=== PATIENT | male | born 1975 | race Hispanic/Latino ===

== ENCOUNTER 2018-10-16 19:56 | Inpatient (IN) | payer BC ==
[~2018-10-16] VITALS: Ht 177.8 cm; Wt 92.2 kg
[2018-10-16] MEDS ORDERED: KETOROLAC TROMETHAMINE 15MG/ML ONE (20:23)
[2018-10-16 20:27] LABS: BASOPHILS % (AUTO) 0.7 % (0.0-5.0); EOSINOPHILS % (AUTO) 0.3 % (0.0-8.0); HEMATOCRIT 42.6 % (42-54); LYMPHOCYTES % (AUTO) 8.4 % (21.0-51.0); MEAN CORPUSCULAR HEMOGLOBIN 30.1 pg (27.0-33.0); MEAN CORPUSCULAR HGB CONC 33.3 g/dL (32.0-36.0); MEAN CORPUSCULAR VOLUME 90.2 fL (79-99); MONOCYTES % (AUTO) 9.3 % (3.0-13.0); NEUTROPHILS % (AUTO) 81.3 % (40.0-77.0); PLATELET COUNT (AUTO) 45 K/uL (130-400); RED BLOOD CELL COUNT(AUTO) 4.72 MIL/uL (4.50-6.20); RED CELL DISTRIBUTION WIDTH 14.2 % (11.0-15.5); WHITE BLOOD COUNT (AUTO) 8.5 K/uL (4.8-10.8)
[2018-10-16 20:34] LABS: APPEARANCE,URINE Cloudy (CLEAR); BILIRUBIN,URINE Small (NEGATIVE); COLOR,URINE Orange (YELLOW); GLUCOSE, URINE (UA) Negative (NEGATIVE); KETONES,URINE 15 mg/dL (NEGATIVE); LEUKOCYTE ESTERASE ,URINE Trace (NEGATIVE); NITRATE,URINE Positive (NEGATIVE); OCCULT BLOOD,URINE Small (NEGATIVE); PROTEIN,URINE Trace mg/dL (NEGATIVE)
[2018-10-16 20:40] LABS: CREATININE 1.1 mg/dL (0.5-1.5); POTASSIUM 4.3 mmol/L (3.5-5.1)
[2018-10-16 20:44] LABS: BILIRUBIN,TOTAL 1.6 mg/dL (0.2-1.0); TOTAL PROTEIN, SERUM 7.2 g/dL (6.0-8.3)
[2018-10-16 20:45] LABS: BACTERIA,URINE Few /HPF (None Seen); CALCIUM OXALATE CRYSTALS,UR Few /LPF (None Seen); MUCUS,URINE Few LPF (None Seen); RBC,URINE 0-1 /HPF (0-1); SQUAMOUS EPITHELIAL CELL,UR Few /HPF (0-2)
[2018-10-16 20:47] LABS: PLATELET MORPHOLOGY COMMENT MARKED DECREASE
[2018-10-16] MEDS ORDERED: SODIUM CHLORIDE 0.9% 1000ML 1,000 ML IV SCH (22:59)
[2018-10-16] MEDS ORDERED: LACTULOSE 20 GM/30 ML UDCUP PO PRN (23:00)
[2018-10-16] MEDS ORDERED: ONDANSETRON HCL 4 MG/2 ML VIAL IV PRN (23:00)
[2018-10-16] MEDS ORDERED: MORPHINE SULFATE 4 MG/1ML SYG IV PRN (23:00)
[2018-10-16 23:04] VITALS: BP 111/79
[2018-10-16] MEDS ORDERED: FURO40TA5 PO (23:20)
[2018-10-16] MEDS ORDERED: LACT10SO8 PO (23:20)
[2018-10-16] MEDS ORDERED: SPIR100T5 PO (23:20)
[2018-10-16] MEDS: CEFTRIAXONE SODIUM 1 GM IV SCH (23:54)
[2018-10-17 03:15] VITALS: BP 118/81
[2018-10-17] MEDS ORDERED: NON-FORMULARY MEDICATION 1 EACH (Lactulose 10 GM) PO SCH (07:00)
[2018-10-17] MEDS: MORPHINE SULFATE 2 MG/ML 1ML SYG IV PRN ×2 (07:56→09:05)
[2018-10-17] MEDS: FAMOTIDINE/PF 20 MG/2 ML VIAL IV SCH ×2 (07:57→20:07)
[2018-10-17 08:00] VITALS: BP 108/72
[2018-10-17] MEDS: FUROSEMIDE 40 MG TABLET PO SCH (08:01)
[2018-10-17] MEDS: SPIRONOLACTONE 25 MG TAB PO SCH (08:01)
[2018-10-17] MEDS ORDERED: FUROSEMIDE 10 MG/ML 2ML VIAL IV SCH (09:00)
[2018-10-17] MEDS ORDERED: ENOXAPARIN SODIUM 30 MG/0.3 ML SQ SCH (09:00)
[2018-10-17] MEDS ORDERED: KETOROLAC TROMETHAMINE 15MG/ML IV PRN (09:15)
[2018-10-17] MEDS ORDERED: MORPHINE SULFATE 2 MG/ML 1ML SYG IVP SCH (09:15)
[2018-10-17 11:00] VITALS: BP 111/71
--- NOTE | 2018-10-17 11:00 | NUR ---
DR. TUNG GOLDEN MD PAGED, PENDING CONSULT FOR RIGHT KIDNEY HYDRONEPHROSIS RESULTS. PER ER, MD MADE AWARE OF CONSULT LAST NIGHT. PENDING MD TO RETURN CALL IN REGARDS TO PLAN OF CARE. WILL MONITOR PT CLOSELY.
--- NOTE | 2018-10-17 12:29 | NUR ---
DCP CM met with pt discussed dc plans. Pt is independent prior to admission, lives at home alone, mother lives close by. Denies any equipments/services. Pt feels safe to go back home, still drives and works, pt arranges own needs. DC plan to home once stable. CM to cont to follow up. Addendum: 10/17/18 at 1230 by LOKESH RASCON LVN CM Amended: Links added.
--- NOTE | 2018-10-17 13:14 | NUR ---
RD Notification Patient initially with refusal to eat in case of procedure. RD with suggestion of Ensure Clear at meals, Patient agreed. Patient with no report of GI distress. RD discussed cholelithiasis diet education with patient. Patient with good knowledge of cirrhosis diet and preventative measures. Patient monitored labs: BUN 21, Glu 140, T. Bili 1.6, AST 41. RD to continue to monitor. Please notify RD as nutritional concerns arise. Thank you. Addendum: 10/17/18 at [address] RD Amended: Links added.
[2018-10-17 16:00] VITALS: BP 99/58
[2018-10-17 20:00] VITALS: BP 111/75
[2018-10-17] MEDS: CEFTRIAXONE SODIUM 1 GM IV SCH (22:43)
[2018-10-18] VITALS: BP 104/72
[2018-10-18 04:00] VITALS: BP 121/74
[2018-10-18 05:30] LABS: BASOPHILS % (AUTO) 0.3 % (0.0-5.0); EOSINOPHILS % (AUTO) 0.8 % (0.0-8.0); HEMATOCRIT 34.6 % (42-54); LYMPHOCYTES % (AUTO) 10.7 % (21.0-51.0); MEAN CORPUSCULAR HEMOGLOBIN 30.9 pg (27.0-33.0); MEAN CORPUSCULAR VOLUME 90.7 fL (79-99); MONOCYTES % (AUTO) 12.7 % (3.0-13.0); NEUTROPHILS % (AUTO) 75.5 % (40.0-77.0); PLATELET COUNT (AUTO) 36 K/uL (130-400); RED BLOOD CELL COUNT(AUTO) 3.82 MIL/uL (4.50-6.20); RED CELL DISTRIBUTION WIDTH 13.8 % (11.0-15.5); WHITE BLOOD COUNT (AUTO) 6.8 K/uL (4.8-10.8)
[2018-10-18 05:52] LABS: CREATININE 1.3 mg/dL (0.5-1.5); POTASSIUM 4.4 mmol/L (3.5-5.1)
[2018-10-18 08:00] VITALS: BP 113/71
[2018-10-18] MEDS: SPIRONOLACTONE 25 MG TAB PO SCH (09:00)
[2018-10-18] MEDS: FAMOTIDINE/PF 20 MG/2 ML VIAL IV SCH (09:00)
[2018-10-18] MEDS: FUROSEMIDE 40 MG TABLET PO SCH (09:00)
[2018-10-18 12:00] VITALS: BP 108/72
[2018-10-18] MEDS ORDERED: TAMS-1 PO (12:45)
[2018-10-18] MEDS ORDERED: CEFD300C3 PO (13:50)
[2018-10-19] MEDS ORDERED: TAMSULOSIN HCL 0.4 MG CAP.ER.24H PO SCH (13:00)
== END 2018-10-18 15:25 | disposition home or self-care (01) | DRG 690 ==
LOC: EDH 19:56 → EDHIP 21:00 → 4BH 22:15 → 3BH 10-17 19:29
PROVIDERS: ADMIT Internal Medicine; ATTEND Internal Medicine
DX: N13.6 Pyonephrosis (principal); R18.8 Other ascites; D69.6 Thrombocytopenia, unspecified; E66.9 Obesity, unspecified; K74.60 Unspecified cirrhosis of liver; K76.0 Fatty (change of) liver, not elsewhere classified; Z90.49 Acquired absence of other specified parts of digestive tract; Z68.29 Body mass index [BMI] 29.0-29.9, adult
CPT/HCPCS: 36415; 74176; 80048; 80053; 81001; 83690; 85025; 87088; G0378; J0696; J1885; J2405; J3490

== ENCOUNTER → 2018-11-26 | Outpatient (CLI) | payer BC ==
[~2018-11-26] MED LIST: CEFD300C3 PO; FURO20TA4 PO; FURO40TA5 PO; LACT10SO8 PO; LACT10SO9 PO; SPIR100T5 PO; TAMS-1 PO; TRAM50TA4 PO; [UNRECOGNIZED DRUG - OTHER] PO
== END | disposition home or self-care (01) ==
LOC: RAH 07:38
PROVIDERS: ATTEND Internal Medicine Gastroenterology
DX: K80.20 Calculus of gallbladder without cholecystitis without obstruction (principal); R18.8 Other ascites; R16.1 Splenomegaly, not elsewhere classified
CPT/HCPCS: 76700; 93975

== ENCOUNTER → 2018-12-01 | Outpatient (CLI) | payer BC ==
[~2018-12-01] MED LIST changes: +ALBUMIN (HUMAN) 25% 200 ML IV SCH
[2018-12-01 08:36] LABS: BASOPHILS % (AUTO) 0.7 % (0.0-5.0); EOSINOPHILS % (AUTO) 1.5 % (0.0-8.0); HEMATOCRIT 42.1 % (42-54); LYMPHOCYTES % (AUTO) 17.7 % (21.0-51.0); MEAN CORPUSCULAR HEMOGLOBIN 30.1 pg (27.0-33.0); MEAN CORPUSCULAR HGB CONC 33.4 g/dL (32.0-36.0); MEAN CORPUSCULAR VOLUME 90.2 fL (79-99); MONOCYTES % (AUTO) 8.7 % (3.0-13.0); NEUTROPHILS % (AUTO) 71.4 % (40.0-77.0); NUCLEATED RED BLOOD CELLS 0.1 % (0.0-0.19); PLATELET COUNT (AUTO) 61 K/uL (130-400); RED BLOOD CELL COUNT(AUTO) 4.67 MIL/uL (4.50-6.20); RED CELL DISTRIBUTION WIDTH 14.6 % (11.0-15.5); WHITE BLOOD COUNT (AUTO) 4.9 K/uL (4.8-10.8)
[2018-12-01 08:52] LABS: INR 1.25 (0.85-1.15); PROTHROMBIN TIME 13.1 SEC (9.6-11.6)
[2018-12-01 08:53] LABS: ALBUMIN 2.9 g/dL (3.5-5.0); CREATININE 0.8 mg/dL (0.5-1.5); POTASSIUM 4.5 mmol/L (3.5-5.1)
--- NOTE | 2018-12-01 10:45 | NUR ---
U/S GD PARACENTESIS PROCEDURE PERFORMED BY DR Dilma MORGAN. PUNCTURE SITE RLQ AND PATIENT TOLERATED PROCEDURE WELL. TOTAL REMOVED 13 LITERS OF BLOOD TINGED FLUID. SPECIMEN SENT TO LAB. ALBUMIN 25% 50 GRAMS IV GIVEN POST PROCEDURE. END OF PROCEDURE AT 1015. CATHETER REMOVED AND DRESSING APPLIED. DISCHARGE INSTRUCTIONS GIVEN AND VERBALIZED UNDERSTANDING. DISCHARGED VIA AMBULATION AT 1045.
[2018-12-01 12:35] LABS: APPEARANCE BODY FLUID CLOUDY (CLEAR); COLOR,BODY FLUID ORANGE (LT YELLOW); SPECIMENTYPE,BODY FLUID ASCITES; TOTAL VOLUME,BODY FLUID 13000 mL
[2018-12-01 12:36] LABS: BODY FLUID RBC 6640 /cu. mm.; BODY FLUID WBC 49 /cu. mm.
[2018-12-01 12:40] LABS: BF LYMPHOCYTE 50 %; BF MESOTHELIAL 45 %
== END ==
LOC: RAH 07:58
PROVIDERS: ATTEND Internal Medicine Gastroenterology
DX: R18.8 Other ascites (principal); K74.60 Unspecified cirrhosis of liver
CPT/HCPCS: 36415; 49083; 80053; 85025; 85610; 87071; 87205; 88108; 88305; 89051; 96365; A4215; P9046

== ENCOUNTER 2018-12-03 05:39 | Day surgery (SDC) | payer BC ==
[~2018-12-03] VITALS: Ht 177.8 cm; Wt 85.7 kg
[2018-12-03] MEDS ORDERED: SODIUM CHLORIDE 0.9% 1000ML 1,000 ML IV ONE (06:04)
[2018-12-03 06:50] VITALS: BP 91/63
[2018-12-03] MEDS ORDERED: FURO20TA4 PO (06:58)
[2018-12-03] MEDS ORDERED: [UNRECOGNIZED DRUG - OTHER] PO (06:58)
[2018-12-03] MEDS ORDERED: LACT10SO9 PO (06:58)
[2018-12-03] MEDS ORDERED: TRAM50TA4 PO (06:58)
--- NOTE | 2018-12-03 06:59 | NUR ---
nursing regarding 3oz h2o this am at 5 brayden alvarado anesthesia aware and no new orders recd Addendum: 12/03/18 at 0701 by DEMETRIUS NAM RN Amended: Links added.
[2018-12-03] MEDS ORDERED: PROPOFOL 10 MG/ML 20ML VIAL IV ONE (07:27)
[2018-12-03] MEDS ORDERED: LIDOCAINE HCL 1% 20 ML VIAL ONE (07:27)
[2018-12-03 07:36] VITALS: BP 102/72
[2018-12-03 07:41] VITALS: BP 95/59
[2018-12-03 07:46] VITALS: BP 101/59
[2018-12-03 07:51] VITALS: BP 101/61
[2018-12-03 07:58] VITALS: BP 106/71
== END 2018-12-03 08:10 | disposition home or self-care (01) ==
LOC: DAH 05:39 → ENDO 05:39
PROVIDERS: ATTEND Internal Medicine Gastroenterology
DX: K29.50 Unspecified chronic gastritis without bleeding (principal); I85.00 Esophageal varices without bleeding; K76.6 Portal hypertension; K31.89 Other diseases of stomach and duodenum; K31.7 Polyp of stomach and duodenum; I10 Essential (primary) hypertension; K74.60 Unspecified cirrhosis of liver; F41.9 Anxiety disorder, unspecified; F32.9 Major depressive disorder, single episode, unspecified; E11.9 Type 2 diabetes mellitus without complications; M19.90 Unspecified osteoarthritis, unspecified site; Z87.19 Personal history of other diseases of the digestive system; E66.9 Obesity, unspecified; Z68.29 Body mass index [BMI] 29.0-29.9, adult; Z79.899 Other long term (current) drug therapy; K72.90 Hepatic failure, unspecified without coma; K80.20 Calculus of gallbladder without cholecystitis without obstruction
CPT/HCPCS: 43239; 82948 ×3; A4606; J2704; J7030

== ENCOUNTER → 2018-12-17 | Outpatient (CLI) | payer BC ==
[~2018-12-17] MED LIST changes: -CEFD300C3 PO; -FURO40TA5 PO; -LACT10SO8 PO; -SPIR100T5 PO; -TAMS-1 PO
[2018-12-17 08:35] LABS: BASOPHILS % (AUTO) 0.6 % (0.0-5.0); EOSINOPHILS % (AUTO) 1.8 % (0.0-8.0); HEMATOCRIT 38.4 % (42-54); LYMPHOCYTES % (AUTO) 18.5 % (21.0-51.0); MEAN CORPUSCULAR HEMOGLOBIN 30.3 pg (27.0-33.0); MEAN CORPUSCULAR HGB CONC 33.3 g/dL (32.0-36.0); MEAN CORPUSCULAR VOLUME 91.1 fL (79-99); MONOCYTES % (AUTO) 10.5 % (3.0-13.0); NEUTROPHILS % (AUTO) 68.6 % (40.0-77.0); PLATELET COUNT (AUTO) 49 K/uL (130-400); RED BLOOD CELL COUNT(AUTO) 4.22 MIL/uL (4.50-6.20); RED CELL DISTRIBUTION WIDTH 14.2 % (11.0-15.5); WHITE BLOOD COUNT (AUTO) 3.9 K/uL (4.8-10.8)
[2018-12-17 08:44] LABS: CREATININE 0.7 mg/dL (0.5-1.5); POTASSIUM 3.9 mmol/L (3.5-5.1)
[2018-12-17 08:46] LABS: INR 1.25 (0.85-1.15); PROTHROMBIN TIME 13.1 SEC (9.6-11.6)
[2018-12-17 08:49] LABS: ALBUMIN 2.6 g/dL (3.5-5.0); BILIRUBIN,TOTAL 1.7 mg/dL (0.2-1.0); TOTAL PROTEIN, SERUM 6.4 g/dL (6.0-8.3)
--- NOTE | 2018-12-17 10:00 | NUR ---
U/S GD PARACENTESIS PROCEDURE PERFORMED BY DR Dorothy KIM. PUNCTURE SITE RLQ AND PATIENT TOLERATED PROCEDURE WELL. TOTAL REMOVED 12 LITERS OF CLOUDY YELLOW FLUID. ALBUMIN 25% 50 GRAMS IV GIVEN DURING PROCEDURE. SPECIMEN SENT TO LAB. END OF PROCEDURE AT 0930. CATHETER REMOVED AND DRESSING APPLIED. NO BLEEDING NOTED. DISCHARGE INSTRUCTIONS GIVEN TO PATIENT AND VERBALIZED UNDERSTANDING. DISCHARGED VIA AMBULATION AT 1000. AAO X3 WITH NO C/O PAIN.
[2018-12-17 10:04] LABS: PLATELET MORPHOLOGY COMMENT MARKED DECREASE
[2018-12-17 13:38] LABS: APPEARANCE BODY FLUID CLOUDY (CLEAR); SPECIMENTYPE,BODY FLUID ASCITES
[2018-12-17 13:39] LABS: COLOR,BODY FLUID ORANGE (LT YELLOW); TOTAL VOLUME,BODY FLUID 12000 mL
[2018-12-17 13:41] LABS: BODY FLUID WBC 129 /cu. mm.
[2018-12-17 13:42] LABS: BODY FLUID RBC 4074 /cu. mm.
[2018-12-17 14:13] LABS: BF LYMPHOCYTE 59 %; BF MONOCYTE 30 %
== END ==
LOC: RAH 08:04
PROVIDERS: ATTEND Internal Medicine Gastroenterology
DX: R18.8 Other ascites (principal); K74.60 Unspecified cirrhosis of liver
CPT/HCPCS: 36415; 49083; 80053; 85025; 85610; 87071; 87205; 88108; 88305; 89051; 96365; P9046

== ENCOUNTER 2018-12-20 12:16 | Emergency (ER) | payer BC ==
[~2018-12-20 12:16] MED LIST changes: -ALBUMIN (HUMAN) 25% 200 ML IV SCH
[2018-12-20 12:53] LABS: BASOPHILS % (AUTO) 0.5 % (0.0-5.0); EOSINOPHILS % (AUTO) 2.1 % (0.0-8.0); HEMATOCRIT 37.7 % (42-54); LYMPHOCYTES % (AUTO) 17.7 % (21.0-51.0); MEAN CORPUSCULAR HEMOGLOBIN 30.6 pg (27.0-33.0); MEAN CORPUSCULAR HGB CONC 33.9 g/dL (32.0-36.0); MEAN CORPUSCULAR VOLUME 90.1 fL (79-99); MONOCYTES % (AUTO) 10.5 % (3.0-13.0); NEUTROPHILS % (AUTO) 69.2 % (40.0-77.0); NUCLEATED RED BLOOD CELLS 0.1 % (0.0-0.19); PLATELET COUNT (AUTO) 56 K/uL (130-400); RED BLOOD CELL COUNT(AUTO) 4.19 MIL/uL (4.50-6.20); RED CELL DISTRIBUTION WIDTH 14.6 % (11.0-15.5); WHITE BLOOD COUNT (AUTO) 4.5 K/uL (4.8-10.8)
[2018-12-20 13:01] LABS: INR 1.22 (0.85-1.15); PARTIAL THROMBOPLASTIN TIME 27.9 SEC (26.3-35.5); PROTHROMBIN TIME 12.8 SEC (9.6-11.6)
[2018-12-20 13:13] LABS: CREATININE 0.9 mg/dL (0.5-1.5); POTASSIUM 4.1 mmol/L (3.5-5.1)
[2018-12-20 13:17] LABS: ALBUMIN 2.6 g/dL (3.5-5.0); BILIRUBIN,TOTAL 1.2 mg/dL (0.2-1.0); TOTAL PROTEIN, SERUM 6.4 g/dL (6.0-8.3)
== END 2018-12-20 14:54 | disposition home or self-care (01) ==
LOC: EDH 12:16
DX: R18.8 Other ascites (principal); D69.6 Thrombocytopenia, unspecified; K74.60 Unspecified cirrhosis of liver; E11.9 Type 2 diabetes mellitus without complications; Z88.6 Allergy status to analgesic agent
CPT/HCPCS: 36415; 74176; 80053; 83605; 83690; 85025; 85610; 85730

== ENCOUNTER → 2018-12-31 | Outpatient (CLI) | payer BC ==
[~2018-12-31] VITALS: Ht 177.8 cm; Wt 99.8 kg
[~2018-12-31] MED LIST changes: +ALBUMIN (HUMAN) 25% 200 ML IV SCH
--- NOTE | 2018-12-31 09:05 | NUR ---
U/S GD PARACENTESIS PROCEDURE PERFORMED BY DR CORMIER. PUNCTURE SITE RIGHT LOWER QUADRANT OF ABDOMEN AND PATIENT TOLERATED PROCEDURE WELL. TOTAL REMOVED 14.6 LITERS OF CLOUDY YELLOW FLUID. ALBUMIN 25% 50 GRAMS IV GIVEN DURING PROCEDURE. SPECIMEN SENT TO LAB. END OF PROCEDURE AT 0955. CATHETER REMOVED AND DRESSING APPLIED. NO BLEEDING NOTED. DISCHARGE INSTRUCTIONS GIVEN TO PATIENT AND VERBALIZED UNDERSTANDING. DISCHARGED VIA AMBULATION AT 1015. AAO X3 WITH NO C/O PAIN.
[2018-12-31 12:34] LABS: APPEARANCE BODY FLUID CLOUDY (CLEAR); BF EOSINOPHIL 1 %; BF LYMPHOCYTE 47 %; BF MESOTHELIAL 25 %; BF MONOCYTE 3 %; SPECIMENTYPE,BODY FLUID ASCITES
[2018-12-31 12:35] LABS: COLOR,BODY FLUID DARK YELLOW (LT YELLOW); TOTAL VOLUME,BODY FLUID 14600 mL
[2018-12-31 12:37] LABS: BODY FLUID WBC 63 /cu. mm.
[2018-12-31 12:38] LABS: BODY FLUID RBC 410 /cu. mm.
== END ==
LOC: RAH 07:50
PROVIDERS: ATTEND Internal Medicine Gastroenterology
DX: R18.8 Other ascites (principal); K74.60 Unspecified cirrhosis of liver
CPT/HCPCS: 49083; 87071; 87205; 88108; 88305; 89051; 96365; A4215; P9046

== ENCOUNTER → 2019-01-07 | Outpatient (CLI) | payer BC ==
[~2019-01-07] MED LIST changes: -ALBUMIN (HUMAN) 25% 200 ML IV SCH
== END | disposition home or self-care (01) ==
LOC: RAH 10:51
PROVIDERS: ATTEND Internal Medicine Gastroenterology
DX: R10.11 Right upper quadrant pain (principal)
CPT/HCPCS: 78226; A9537

== ENCOUNTER → 2019-01-14 | Outpatient (CLI) | payer BC ==
[~2019-01-14] MED LIST changes: +ALBUMIN (HUMAN) 25% 200 ML IV SCH
[2019-01-14 09:08] LABS: HEMATOCRIT 40.5 % (42-54); MEAN CORPUSCULAR HEMOGLOBIN 30.6 pg (27.0-33.0); MEAN CORPUSCULAR HGB CONC 33.1 g/dL (32.0-36.0); MEAN CORPUSCULAR VOLUME 92.4 fL (79-99); NUCLEATED RED BLOOD CELLS 0.1 % (0.0-0.19); PLATELET COUNT (AUTO) 52 K/uL (130-400); RED BLOOD CELL COUNT(AUTO) 4.38 MIL/uL (4.50-6.20); WHITE BLOOD COUNT (AUTO) 3.7 K/uL (4.8-10.8)
[2019-01-14 09:15] LABS: INR 1.19 (0.85-1.15); PROTHROMBIN TIME 12.5 SEC (9.6-11.6)
[2019-01-14 09:19] LABS: ALBUMIN 2.8 g/dL (3.5-5.0); BILIRUBIN,TOTAL 1.4 mg/dL (0.2-1.0); CREATININE 0.8 mg/dL (0.5-1.5); TOTAL PROTEIN, SERUM 7.2 g/dL (6.0-8.3)
--- NOTE | 2019-01-14 09:45 | NUR ---
U/S GD PARACENTESIS PROCEDURE PERFORMED BY DR Dilma MORGAN. PUNCTURE SITE RLQ. TOTAL REMOVED 14 LITERS OF CLOUDY PINK FLUID. END OF PROCEDURE AT 0915. ALBUMIN 25% 50 GRAMS IV GIVEN POST PROCEDURE AND SPECIMEN SENT TO LAB. PATIENT TOLERATED PROCEDURE WELL. DISCHARGE INSTRUCTIONS GIVEN TO PATIENT AND VERBALIZED UNDERSTANDING. DISCHARGED AT 0945 VIA AMBULATION.
[2019-01-14 09:52] LABS: PLATELET MORPHOLOGY COMMENT MARKED DECREASE
[2019-01-14 13:25] LABS: APPEARANCE BODY FLUID CLOUDY (CLEAR); COLOR,BODY FLUID YELLOW (LT YELLOW); SPECIMENTYPE,BODY FLUID ASCITES
[2019-01-14 13:26] LABS: BODY FLUID WBC 100 /cu. mm.; TOTAL VOLUME,BODY FLUID 14000 mL
[2019-01-14 13:27] LABS: BODY FLUID RBC 2123 /cu. mm.
[2019-01-14 13:34] LABS: BF LYMPHOCYTE 46 %; BF MESOTHELIAL 21 %; BF MONOCYTE 1 %
== END ==
LOC: RAH 07:58
PROVIDERS: ATTEND Internal Medicine Gastroenterology
DX: R18.8 Other ascites (principal); K74.60 Unspecified cirrhosis of liver
CPT/HCPCS: 36415; 49083; 80053; 85027; 85610; 87071; 87205; 88108; 88305; 89051; 96365; A4215; P9046

== ENCOUNTER → 2019-01-28 | Outpatient (CLI) | payer BC ==
[2019-01-28 08:37] LABS: CREATININE 0.7 mg/dL (0.5-1.5); POTASSIUM 4.5 mmol/L (3.5-5.1)
[2019-01-28 08:38] LABS: BASOPHILS % (AUTO) 0.6 % (0.0-5.0); EOSINOPHILS % (AUTO) 2.1 % (0.0-8.0); HEMATOCRIT 39.1 % (42-54); LYMPHOCYTES % (AUTO) 18.7 % (21.0-51.0); MEAN CORPUSCULAR HEMOGLOBIN 30.8 pg (27.0-33.0); MEAN CORPUSCULAR HGB CONC 33.8 g/dL (32.0-36.0); MONOCYTES % (AUTO) 9.7 % (3.0-13.0); NEUTROPHILS % (AUTO) 68.9 % (40.0-77.0); PLATELET COUNT (AUTO) 44 K/uL (130-400); WHITE BLOOD COUNT (AUTO) 4.2 K/uL (4.8-10.8)
[2019-01-28 08:39] LABS: INR 1.2 (0.85-1.15); PROTHROMBIN TIME 12.6 SEC (9.6-11.6)
[2019-01-28 08:42] LABS: ALBUMIN 2.6 g/dL (3.5-5.0); BILIRUBIN,TOTAL 1.6 mg/dL (0.2-1.0); TOTAL PROTEIN, SERUM 6.9 g/dL (6.0-8.3)
--- NOTE | 2019-01-28 09:35 | NUR ---
U/S GD PARACENTESIS PROCEDURE PERFORMED BY DR HASSAN. PUNCTURE SITE RIGHT LOWER QUADRANT. TOTAL REMOVED 15 LITERS OF CLOUDY YELLOW ASCITES FLUID. END OF PROCEDURE AT 1030. ALBUMIN 25% 50 GRAMS IV GIVEN POST PROCEDURE AND SPECIMEN SENT TO LAB. PATIENT TOLERATED PROCEDURE WELL. DISCHARGE INSTRUCTIONS GIVEN TO PATIENT AND VERBALIZED UNDERSTANDING. DISCHARGED AT 1040 VIA AMBULATION STABLE, AAO X 3.
[2019-01-28 12:39] LABS: APPEARANCE BODY FLUID CLOUDY (CLEAR); COLOR,BODY FLUID YELLOW (LT YELLOW); SPECIMENTYPE,BODY FLUID ASCITES
[2019-01-28 12:40] LABS: BODY FLUID RBC 1975 /cu. mm.; BODY FLUID WBC 178 /cu. mm.; TOTAL VOLUME,BODY FLUID 15000 mL
[2019-01-28 12:44] LABS: BF LYMPHOCYTE 55 %; BF MONOCYTE 14 %
== END ==
LOC: RAH 08:00
PROVIDERS: ATTEND Internal Medicine Gastroenterology
DX: R18.8 Other ascites (principal); K74.60 Unspecified cirrhosis of liver
CPT/HCPCS: 36415; 49083; 80053; 85025; 85610; 87071; 87205; 88108; 88305; 89051; 96365; A4215; P9046

== ENCOUNTER → 2019-02-11 | Outpatient (CLI) | payer BC ==
[2019-02-11 08:22] LABS: BASOPHILS % (AUTO) 0.8 % (0.0-5.0); LYMPHOCYTES % (AUTO) 18.5 % (21.0-51.0); MEAN CORPUSCULAR HEMOGLOBIN 30.3 pg (27.0-33.0); MEAN CORPUSCULAR HGB CONC 33.3 g/dL (32.0-36.0); MEAN CORPUSCULAR VOLUME 90.9 fL (79-99); MONOCYTES % (AUTO) 10.4 % (3.0-13.0); NEUTROPHILS % (AUTO) 68.3 % (40.0-77.0); NUCLEATED RED BLOOD CELLS 0.1 % (0.0-0.19); PLATELET COUNT (AUTO) 47 K/uL (130-400); RED BLOOD CELL COUNT(AUTO) 4.28 MIL/uL (4.50-6.20); WHITE BLOOD COUNT (AUTO) 4.4 K/uL (4.8-10.8)
[2019-02-11 08:36] LABS: INR 1.25 (0.85-1.15); PROTHROMBIN TIME 13.1 SEC (9.6-11.6)
[2019-02-11 08:39] LABS: ALBUMIN 2.5 g/dL (3.5-5.0); BILIRUBIN,TOTAL 1.5 mg/dL (0.2-1.0); CREATININE 0.8 mg/dL (0.5-1.5); POTASSIUM 4.3 mmol/L (3.5-5.1); TOTAL PROTEIN, SERUM 6.5 g/dL (6.0-8.3)
--- NOTE | 2019-02-11 08:55 | NUR ---
U/S GD PARACENTESIS PROCEDURE PERFORMED BY DR CORMIER. PUNCTURE SITE RIGHT LOWER QUADRANT. TOTAL REMOVED 15.6 LITERS OF CLOUDY YELLOW ASCITES FLUID. END OF PROCEDURE AT 0935. ALBUMIN 25% 50 GRAMS IV GIVEN POST PROCEDURE AND SPECIMEN SENT TO LAB. PATIENT TOLERATED PROCEDURE WELL. DISCHARGE INSTRUCTIONS GIVEN TO PATIENT AND VERBALIZED UNDERSTANDING. DISCHARGED AT 1000 VIA AMBULATION STABLE, AAO X 3.
[2019-02-11 13:07] LABS: COLOR,BODY FLUID YELLOW (LT YELLOW); SPECIMENTYPE,BODY FLUID ASCITES
[2019-02-11 13:08] LABS: BODY FLUID WBC 177 /cu. mm.; TOTAL VOLUME,BODY FLUID 15600 mL
[2019-02-11 13:09] LABS: BODY FLUID RBC 1650 /cu. mm.
[2019-02-11 13:20] LABS: BF BASOPHIL 1 %; BF LYMPHOCYTE 56 %; BF MESOTHELIAL 28 %; BF MONOCYTE 12 %
[2019-02-11 13:31] LABS: APPEARANCE BODY FLUID CLOUDY (CLEAR)
== END ==
LOC: RAH 07:45
PROVIDERS: ATTEND Internal Medicine Gastroenterology
DX: R18.8 Other ascites (principal)
CPT/HCPCS: 36415; 49083; 80053; 85025; 85610; 87071; 87205; 89051; 96365; A4215; P9046

== ENCOUNTER → 2019-02-18 | Outpatient (CLI) | payer BC ==
[2019-02-18 08:42] LABS: INR 1.25 (0.85-1.15)
--- NOTE | 2019-02-18 08:43 | NUR ---
U/S GD PARACENTESIS PROCEDURE PERFORMED BY DR JUDGE. PUNCTURE SITE RIGHT LOWER QUADRANT. TOTAL REMOVED __13.8 LITERS OF CLOUDY YELLOW ASCITES FLUID. END OF PROCEDURE AT 0930. ALBUMIN 25% 50 GRAMS IV GIVEN POST PROCEDURE AND SPECIMEN SENT TO LAB. PATIENT TOLERATED PROCEDURE WELL. DISCHARGE INSTRUCTIONS GIVEN TO PATIENT AND VERBALIZED UNDERSTANDING. DISCHARGED AT 0950 VIA AMBULATION STABLE, AAO X 3, DENIES ANY PAIN.
[2019-02-18 08:58] LABS: BASOPHILS % (AUTO) 0.8 % (0.0-5.0); EOSINOPHILS % (AUTO) 2.4 % (0.0-8.0); HEMATOCRIT 38.8 % (42-54); LYMPHOCYTES % (AUTO) 20.7 % (21.0-51.0); MEAN CORPUSCULAR HEMOGLOBIN 30.9 pg (27.0-33.0); MEAN CORPUSCULAR HGB CONC 33.8 g/dL (32.0-36.0); MEAN CORPUSCULAR VOLUME 91.3 fL (79-99); MONOCYTES % (AUTO) 10.5 % (3.0-13.0); NEUTROPHILS % (AUTO) 65.6 % (40.0-77.0); NUCLEATED RED BLOOD CELLS 0.1 % (0.0-0.19); PLATELET COUNT (AUTO) 51 K/uL (130-400); RED BLOOD CELL COUNT(AUTO) 4.25 MIL/uL (4.50-6.20); RED CELL DISTRIBUTION WIDTH 14.8 % (11.0-15.5); WHITE BLOOD COUNT (AUTO) 3.9 K/uL (4.8-10.8)
[2019-02-18 09:37] LABS: CREATININE 0.8 mg/dL (0.5-1.5); POTASSIUM 5.4 mmol/L (3.5-5.1)
[2019-02-18 09:44] LABS: ALBUMIN 2.5 g/dL (3.5-5.0); BILIRUBIN,TOTAL 1.6 mg/dL (0.2-1.0); TOTAL PROTEIN, SERUM 6.6 g/dL (6.0-8.3)
[2019-02-18 15:48] LABS: SPECIMENTYPE,BODY FLUID ASCITES
[2019-02-18 15:49] LABS: APPEARANCE BODY FLUID CLOUDY (CLEAR)
[2019-02-18 15:50] LABS: BODY FLUID WBC 67 /cu. mm.; COLOR,BODY FLUID LT YELLOW (LT YELLOW); TOTAL VOLUME,BODY FLUID 13800 mL
[2019-02-18 15:51] LABS: BODY FLUID RBC 3590 /cu. mm.
[2019-02-18 16:20] LABS: BF LYMPHOCYTE 85 %; BF MONOCYTE 1 %; BF OTHER CELLS 2
== END | disposition home or self-care (01) ==
LOC: RAH 08:01
PROVIDERS: ATTEND Internal Medicine Gastroenterology
DX: R18.8 Other ascites (principal); Z88.8 Allergy status to other drugs, medicaments and biological substances; Z79.899 Other long term (current) drug therapy; Z83.3 Family history of diabetes mellitus
CPT/HCPCS: 36415; 49083; 80053; 85025; 85610; 87071; 87205; 88108; 88305; 89051; 96365; A4215; P9046

== ENCOUNTER → 2019-02-25 | Outpatient (CLI) | payer BC ==
[2019-02-25 08:57] LABS: BASOPHILS % (AUTO) 0.8 % (0.0-5.0); EOSINOPHILS % (AUTO) 2.2 % (0.0-8.0); HEMATOCRIT 38.7 % (42-54); LYMPHOCYTES % (AUTO) 22.3 % (21.0-51.0); MEAN CORPUSCULAR HEMOGLOBIN 30.6 pg (27.0-33.0); MEAN CORPUSCULAR HGB CONC 33.9 g/dL (32.0-36.0); MEAN CORPUSCULAR VOLUME 90.3 fL (79-99); MONOCYTES % (AUTO) 10.4 % (3.0-13.0); NEUTROPHILS % (AUTO) 64.3 % (40.0-77.0); NUCLEATED RED BLOOD CELLS 0.1 % (0.0-0.19); PLATELET COUNT (AUTO) 53 K/uL (130-400); RED BLOOD CELL COUNT(AUTO) 4.29 MIL/uL (4.50-6.20); WHITE BLOOD COUNT (AUTO) 4.4 K/uL (4.8-10.8)
[2019-02-25 09:11] LABS: ALBUMIN 2.6 g/dL (3.5-5.0); BILIRUBIN,TOTAL 1.1 mg/dL (0.2-1.0); CREATININE 0.7 mg/dL (0.5-1.5); POTASSIUM 4.8 mmol/L (3.5-5.1); TOTAL PROTEIN, SERUM 6.5 g/dL (6.0-8.3)
[2019-02-25 09:22] LABS: INR 1.22 (0.85-1.15); PROTHROMBIN TIME 12.7 SEC (9.6-11.6)
[2019-02-25 10:02] LABS: PLATELET MORPHOLOGY COMMENT MARKED DECREASE
--- NOTE | 2019-02-25 10:20 | NUR ---
U/S GD PARACENTESIS PROCEDURE PERFORMED BY DR KRAFT. PUNCTURE SITE RIGHT LOWER QUADRANT OF ABDOMEN. PATIENT TOLERATED PROCEDURE WELL. TOTAL REMOVED 12.2 LITERS OF CLOUDY YELLOW FLUID. END OF PROCEDURE AT 1110. CATHETER REMOVED AND DRESSING APPLIED. NO BLEEDING NOTED. ALBUMIN PROTOCOL GIVEN, ALBUMIN 25% 50 GRAMS. PT GIVEN DISCHARGE INSTRUCTIONS. PT VERBALIZED UNDERSTANDING, PT STABLE, AAO X3 WITH NO C/O PAIN. SPECIMEN SENT TO LAB.
[2019-02-25 15:54] LABS: APPEARANCE BODY FLUID CLOUDY (CLEAR); COLOR,BODY FLUID YELLOW (LT YELLOW); SPECIMENTYPE,BODY FLUID ASCITES
[2019-02-25 15:55] LABS: BODY FLUID WBC 118 /cu. mm.; TOTAL VOLUME,BODY FLUID 1220 mL
[2019-02-25 15:56] LABS: BODY FLUID RBC 2295 /cu. mm.
[2019-02-25 15:58] LABS: BF LYMPHOCYTE 74 %; BF MESOTHELIAL 10 %; BF MONOCYTE 4 %
== END ==
LOC: RAH 08:09
PROVIDERS: ATTEND Internal Medicine Gastroenterology
DX: R18.8 Other ascites (principal); Z88.8 Allergy status to other drugs, medicaments and biological substances; Z79.899 Other long term (current) drug therapy; Z82.49 Family history of ischemic heart disease and other diseases of the circulatory system; Z83.3 Family history of diabetes mellitus
CPT/HCPCS: 36415; 49083; 80053; 85025; 85610; 87071; 87205; 88108; 88305; 89051; 96365; A4215; P9046

== ENCOUNTER → 2019-03-04 | Outpatient (CLI) | payer BC ==
[~2019-03-04] VITALS: Ht 177.8 cm; Wt 104.8 kg
[2019-03-04 08:22] LABS: BASOPHILS % (AUTO) 1.4 % (0.0-5.0); EOSINOPHILS % (AUTO) 1.7 % (0.0-8.0); LYMPHOCYTES % (AUTO) 15.4 % (21.0-51.0); MEAN CORPUSCULAR HEMOGLOBIN 30.9 pg (27.0-33.0); MEAN CORPUSCULAR VOLUME 91.1 fL (79-99); MONOCYTES % (AUTO) 8.8 % (3.0-13.0); NEUTROPHILS % (AUTO) 72.7 % (40.0-77.0); NUCLEATED RED BLOOD CELLS 0.1 % (0.0-0.19); PLATELET COUNT (AUTO) 56 K/uL (130-400); RED BLOOD CELL COUNT(AUTO) 4.39 MIL/uL (4.50-6.20); RED CELL DISTRIBUTION WIDTH 15.6 % (11.0-15.5); WHITE BLOOD COUNT (AUTO) 5.5 K/uL (4.8-10.8)
[2019-03-04 08:35] LABS: INR 1.23 (0.85-1.15); PROTHROMBIN TIME 12.8 SEC (9.6-11.6)
[2019-03-04 08:36] LABS: ALBUMIN 2.6 g/dL (3.5-5.0); BILIRUBIN,TOTAL 1.7 mg/dL (0.2-1.0); CREATININE 0.7 mg/dL (0.5-1.5); POTASSIUM 4.6 mmol/L (3.5-5.1); TOTAL PROTEIN, SERUM 6.4 g/dL (6.0-8.3)
--- NOTE | 2019-03-04 10:15 | NUR ---
U/S GD PARACENTESIS PROCEDURE PERFORMED BY DR Dorothy JUDGE. PUNCTURE SITE RLQ AND PATIENT TOLERATED PROCEDURE WELL. TOTAL REMOVED 10.6 LITERS OF CLOUDY TIMMY FLUID. ALBUMIN 25% 50 GRAMS IV GIVEN DURING PROCEDURE. SPECIMEN SENT TO LAB. END OF PROCEDURE AT 0945. CATHETER REMOVED AND DRESSING APPLIED. NO BLEEDING NOTED. DISCHARGE INSTRUCTIONS GIVEN TO PATIENT AND VERBALIZED UNDERSTANDING. DISCHARGED VIA AMBULATION AT 1015. AAO X3 WITH NO C/O PAIN.
[2019-03-04 13:40] LABS: APPEARANCE BODY FLUID CLOUDY (CLEAR); COLOR,BODY FLUID DARK YELLOW (LT YELLOW); SPECIMENTYPE,BODY FLUID ASCITES; TOTAL VOLUME,BODY FLUID 4000 mL
[2019-03-04 13:41] LABS: BODY FLUID RBC 3800 /cu. mm.; BODY FLUID WBC 193 /cu. mm.
[2019-03-04 13:49] LABS: BF LYMPHOCYTE 38 %; BF MESOTHELIAL 49 %; BF MONOCYTE 7 %
== END ==
LOC: RAH 07:56
PROVIDERS: ATTEND Internal Medicine Gastroenterology
DX: R18.8 Other ascites (principal); Z88.8 Allergy status to other drugs, medicaments and biological substances; Z79.899 Other long term (current) drug therapy; Z82.49 Family history of ischemic heart disease and other diseases of the circulatory system; Z83.3 Family history of diabetes mellitus
CPT/HCPCS: 36415; 49083; 80053; 85025; 85610; 87071; 87205; 88108; 88305; 89051; 96365; A4215; P9046

== ENCOUNTER → 2019-03-11 | Outpatient (CLI) | payer BC ==
[2019-03-11 08:51] LABS: HEMATOCRIT 39.2 % (42-54); MEAN CORPUSCULAR HEMOGLOBIN 30.8 pg (27.0-33.0); MEAN CORPUSCULAR HGB CONC 33.5 g/dL (32.0-36.0); MEAN CORPUSCULAR VOLUME 92.1 fL (79-99); PLATELET COUNT (AUTO) 50 K/uL (130-400); RED BLOOD CELL COUNT(AUTO) 4.25 MIL/uL (4.50-6.20); RED CELL DISTRIBUTION WIDTH 15.4 % (11.0-15.5); WHITE BLOOD COUNT (AUTO) 4.1 K/uL (4.8-10.8)
[2019-03-11 09:02] LABS: INR 1.22 (0.85-1.15); PROTHROMBIN TIME 12.7 SEC (9.6-11.6)
[2019-03-11 09:08] LABS: ALBUMIN 2.6 g/dL (3.5-5.0); BILIRUBIN,TOTAL 1.5 mg/dL (0.2-1.0); CREATININE 0.8 mg/dL (0.5-1.5); POTASSIUM 5.1 mmol/L (3.5-5.1); TOTAL PROTEIN, SERUM 6.4 g/dL (6.0-8.3)
--- NOTE | 2019-03-11 09:20 | NUR ---
U/S GUIDED PARACENTESIS PROCEDURE PERFORMED BY DR. MICHELE. PUNCTURE SITE RIGHT LOWER QUADRANT OF ABDOMEN AND PATIENT TOLERATED PROCEDURE WELL. TOTAL REMOVED 13.1 LITERS OF CLOUDY YELLOW ASCITES FLUID. END OF PROCEDURE AT 1010. CATHETER REMOVED AND DRESSING APPLIED. ALBUMIN 25% 50 GRAMS GIVEN IV DURING PROCEDURE PER [facility] ALBUMIN PROTOCOL. NO BLEEDING NOTED. DISCHARGE INSTRUCTIONS GIVEN TO PATIENT. PATIENT VERBALIZED UNDERSTANDING. PT DISCHARGED AMBULATORY, STABLE, AAO X3 WITH NO C/O PAIN@1030. SPECIMEN SENT TO LAB.
[2019-03-11 16:35] LABS: APPEARANCE BODY FLUID CLOUDY (CLEAR); COLOR,BODY FLUID ORANGE (LT YELLOW); SPECIMENTYPE,BODY FLUID ASCITES; TOTAL VOLUME,BODY FLUID 13000 mL
[2019-03-11 16:36] LABS: BODY FLUID RBC 4095 /cu. mm.; BODY FLUID WBC 64 /cu. mm.
[2019-03-11 17:09] LABS: BF LYMPHOCYTE 38 %; BF MONOCYTE 15 %; BF OTHER CELLS 3
== END ==
LOC: RAH 07:57
PROVIDERS: ATTEND Internal Medicine Gastroenterology
DX: R18.8 Other ascites (principal); Z79.899 Other long term (current) drug therapy; Z88.8 Allergy status to other drugs, medicaments and biological substances; Z82.49 Family history of ischemic heart disease and other diseases of the circulatory system; Z83.3 Family history of diabetes mellitus
CPT/HCPCS: 36415; 49083; 80053; 85027; 85610; 87071; 87205; 88108; 89051; 96365; A4215; P9046

== ENCOUNTER → 2019-03-18 | Outpatient (CLI) | payer BC ==
[~2019-03-18] VITALS: Ht 177.8 cm; Wt 104.8 kg
[~2019-03-18] MED LIST changes: +ALBUMIN (HUMAN) 25% 200 ML IV ONE
[2019-03-18 08:26] LABS: BASOPHILS % (AUTO) 1.1 % (0.0-5.0); EOSINOPHILS % (AUTO) 1.3 % (0.0-8.0); HEMATOCRIT 39.4 % (42-54); LYMPHOCYTES % (AUTO) 16.4 % (21.0-51.0); MEAN CORPUSCULAR HEMOGLOBIN 30.5 pg (27.0-33.0); MEAN CORPUSCULAR HGB CONC 33.6 g/dL (32.0-36.0); MEAN CORPUSCULAR VOLUME 90.8 fL (79-99); MONOCYTES % (AUTO) 21.9 % (3.0-13.0); NEUTROPHILS % (AUTO) 59.3 % (40.0-77.0); NUCLEATED RED BLOOD CELLS 0.2 % (0.0-0.19); PLATELET COUNT (AUTO) 47 K/uL (130-400); RED BLOOD CELL COUNT(AUTO) 4.34 MIL/uL (4.50-6.20); RED CELL DISTRIBUTION WIDTH 14.8 % (11.0-15.5); WHITE BLOOD COUNT (AUTO) 2.3 K/uL (4.8-10.8)
[2019-03-18 08:37] LABS: CREATININE 0.8 mg/dL (0.5-1.5); POTASSIUM 5.1 mmol/L (3.5-5.1)
[2019-03-18 08:40] LABS: INR 1.26 (0.85-1.15); PROTHROMBIN TIME 13.1 SEC (9.6-11.6)
[2019-03-18 08:42] LABS: ALBUMIN 2.8 g/dL (3.5-5.0); TOTAL PROTEIN, SERUM 6.5 g/dL (6.0-8.3)
[2019-03-18 09:22] LABS: EOSINOPHILS % (MANUAL) 1 % (1-6); LYMPHOCYTES % (MANUAL) 17 % (22-44); MAN.DIFF COMMENT-IMPRESSION MANUAL DIFFERENTIAL; MONOCYTES % (MANUAL) 15 % (2-9); SEGMENTED NEUTROPHILS % 67 % (40-70)
[2019-03-18 09:23] LABS: PLATELET MORPHOLOGY COMMENT DECREASED
--- NOTE | 2019-03-18 10:30 | NUR ---
U/S GD PARACENTESIS PROCEDURE PERFORMED BY DR Jorge Alberto HASSAN. PUNCTURE SITE RLQ AND PATIENT TOLERATED PROCEDURE WELL. TOTAL REMOVED 12.8 LITERS OF BLOOD TINGED FLUID. ALBUMIN 25% 50 GRAMS IV GIVEN DURING PROCEDURE. SPECIMEN SENT TO LAB. END OF PROCEDURE AT 1000. CATHETER REMOVED AND DRESSING APPLIED. NO BLEEDING NOTED. DISCHARGE INSTRUCTIONS GIVEN TO PATIENT AND VERBALIZED UNDERSTANDING. DISCHARGED VIA AMBULATION AT 1030. AAO X3 WITH NO C/O PAIN.
[2019-03-18 13:52] LABS: APPEARANCE BODY FLUID CLOUDY (CLEAR); COLOR,BODY FLUID ORANGE (LT YELLOW); SPECIMENTYPE,BODY FLUID ASCITES; TOTAL VOLUME,BODY FLUID 12800 mL
[2019-03-18 14:01] LABS: BODY FLUID RBC 4925 /cu. mm.; BODY FLUID WBC 142 /cu. mm.
[2019-03-18 14:06] LABS: BF LYMPHOCYTE 32 %; BF MESOTHELIAL 42 %; BF MONOCYTE 24 %
== END ==
LOC: RAH 07:53
PROVIDERS: ATTEND Internal Medicine Gastroenterology
DX: R18.8 Other ascites (principal); K74.60 Unspecified cirrhosis of liver; Z88.8 Allergy status to other drugs, medicaments and biological substances; Z79.899 Other long term (current) drug therapy; Z82.49 Family history of ischemic heart disease and other diseases of the circulatory system; Z83.3 Family history of diabetes mellitus
CPT/HCPCS: 36415; 49083; 80053; 85025; 85610; 86003 ×10; 86005; 87071; 87205; 88108; 89051; 96365; A4215; P9046

== ENCOUNTER → 2019-03-25 | Outpatient (CLI) | payer BC ==
[~2019-03-25] MED LIST changes: -ALBUMIN (HUMAN) 25% 200 ML IV ONE
[2019-03-25 08:37] LABS: BASOPHILS % (AUTO) 0.7 % (0.0-5.0); EOSINOPHILS % (AUTO) 2.6 % (0.0-8.0); HEMATOCRIT 39.3 % (42-54); LYMPHOCYTES % (AUTO) 21.3 % (21.0-51.0); MEAN CORPUSCULAR HEMOGLOBIN 30.4 pg (27.0-33.0); MEAN CORPUSCULAR HGB CONC 33.6 g/dL (32.0-36.0); MEAN CORPUSCULAR VOLUME 90.7 fL (79-99); MONOCYTES % (AUTO) 12.7 % (3.0-13.0); NEUTROPHILS % (AUTO) 62.7 % (40.0-77.0); NUCLEATED RED BLOOD CELLS 0.3 % (0.0-0.19); PLATELET COUNT (AUTO) 51 K/uL (130-400); RED BLOOD CELL COUNT(AUTO) 4.33 MIL/uL (4.50-6.20); RED CELL DISTRIBUTION WIDTH 14.9 % (11.0-15.5); WHITE BLOOD COUNT (AUTO) 3.5 K/uL (4.8-10.8)
[2019-03-25 08:42] LABS: INR 1.23 (0.85-1.15); PROTHROMBIN TIME 12.8 SEC (9.6-11.6)
[2019-03-25 08:46] LABS: ALBUMIN 2.5 g/dL (3.5-5.0); BILIRUBIN,TOTAL 1.2 mg/dL (0.2-1.0); CREATININE 0.7 mg/dL (0.5-1.5); POTASSIUM 4.9 mmol/L (3.5-5.1)
--- NOTE | 2019-03-25 10:00 | NUR ---
U/S GD PARACENTESIS PROCEDURE PERFORMED BY DR Dilma MORGAN. PUNCTURE SITE RLQ AND PATIENT TOLERATED PROCEDURE WELL. TOTAL REMOVED 12.5 LITERS OF CLOUDY YELLOW FLUID. ALBUMIN 25% 50 GRAMS IV GIVEN DURING PROCEDURE. SPECIMEN [place]ENT [place] [address]. CATHETER REMOVED AND DRESSING APPLIED. NO BLEEDING NOTED. DISCHARGE INSTRUCTIONS GIVEN TO PATIENT AND VERBALIZED UNDERSTANDING. DISCHARGED VIA AMBULATION AT 1000. AAO X3 WITH NO C/O PAIN.
[2019-03-25 15:28] LABS: APPEARANCE BODY FLUID CLOUDY (CLEAR); COLOR,BODY FLUID PINK (LT YELLOW); SPECIMENTYPE,BODY FLUID ASCITES
[2019-03-25 15:29] LABS: TOTAL VOLUME,BODY FLUID 1250 mL
[2019-03-25 15:31] LABS: BODY FLUID RBC 633 /cu. mm.; BODY FLUID WBC 120 /cu. mm.
[2019-03-25 15:34] LABS: BF LYMPHOCYTE 51 %; BF MESOTHELIAL 14 %; BF MONOCYTE 2 %
== END | disposition home or self-care (01) ==
LOC: RAH 07:50
PROVIDERS: ATTEND Internal Medicine Gastroenterology
DX: R18.8 Other ascites (principal); K74.60 Unspecified cirrhosis of liver; Z88.8 Allergy status to other drugs, medicaments and biological substances; Z79.899 Other long term (current) drug therapy; Z82.49 Family history of ischemic heart disease and other diseases of the circulatory system; Z83.3 Family history of diabetes mellitus
CPT/HCPCS: 36415; 49083; 80053; 85025; 85610; 87071; 87205; 88108; 89051; A4215; P9046